=== PATIENT | female | born 1945 ===

== ENCOUNTER 2020-07-30 06:03 | Outpatient (REF) | payer SELFPAY ==
[2020-07-30 06:51] LABS: Hematocrit 40.5 % (37-47); Hemoglobin 13.1 g/dl (12.0-16.0); Mean Corpuscular HGB Conc 32.3 g/dl (31.0-35.0); Mean Corpuscular Hemoglobin 30.2 pg (27.0-33.0); Mean Corpuscular Volume 93.3 fL (80-98); Mean Platelet Volume 12.2 fL (9.4-12.3); Platelet Count 139 X10*3/uL (160-400); Red Blood Count 4.34 X10*6/uL (4.20-5.50); Red Cell Distribution Width 13.9 % (11.0-16.0); White Blood Count 6.2 X10*3/uL (4.8-10.8)
[2020-07-30 06:53] LABS: Partial Thromboplastin Time 33.4 SEC (24.1-38.0)
[2020-07-30 06:54] LABS: Alanine Aminotransferase 38 U/L (0-31); Albumin Level 3.6 g/dL (3.5-5.0); Alkaline Phosphatase 75 U/L (39-117); Anion Gap 12 (12-20); Aspartate Amino Transferase 28 U/L (5-31); Bilirubin Total 0.5 mg/dL (0.0-1.0); Blood Urea Nitrogen 18 mg/dL (9-16); Calcium 9.8 mg/dL (8.4-10.2); Carbon Dioxide 32 mmol/L (22-29); Chloride 100 mmol/L (96-108); Estimated Glomerular Filt Rate > 60; Glucose Random 104 mg/dL (60-115); Potassium 3.9 mmol/L (3.3-5.1); Sodium 140 mmol/L (135-145); Total Protein 5.7 g/dL (6.5-8.0)
== END 2020-07-30 06:04 | disposition home or self-care (01) ==
LOC: HO.MMNH1L 06:03
PROVIDERS: Visit Provider Family Medicine
DX: E03.9 Hypothyroidism, unspecified (principal); E78.5 Hyperlipidemia, unspecified
CPT/HCPCS: 36415; 80053; 85027; 85730

== ENCOUNTER 2020-08-04 00:24 | Outpatient (REF) | payer SELFPAY ==
[2020-08-04 08:10] LABS: Hemoglobin 13.1 g/dl (12.0-16.0); Mean Corpuscular HGB Conc 32.8 g/dl (31.0-35.0); Mean Corpuscular Hemoglobin 30.7 pg (27.0-33.0); Mean Corpuscular Volume 93.7 fL (80-98); Platelet Count 125 X10*3/uL (160-400); Red Blood Count 4.27 X10*6/uL (4.20-5.50); Red Cell Distribution Width 14.1 % (11.0-16.0); White Blood Count 5.5 X10*3/uL (4.8-10.8)
[2020-08-04 08:30] LABS: Anion Gap 12 (12-20); Blood Urea Nitrogen 18 mg/dL (9-16); Calcium 9.3 mg/dL (8.4-10.2); Carbon Dioxide 32 mmol/L (22-29); Chloride 100 mmol/L (96-108); Estimated Glomerular Filt Rate > 60; Glucose Random 95 mg/dL (60-115); Potassium 3.8 mmol/L (3.3-5.1); Sodium 140 mmol/L (135-145)
== END 2020-08-04 00:25 | disposition home or self-care (01) ==
LOC: HO.MMNH1L 00:24
PROVIDERS: Visit Provider Family Medicine
DX: E03.9 Hypothyroidism, unspecified (principal); E78.5 Hyperlipidemia, unspecified
CPT/HCPCS: 36415; 80048; 85027

== ENCOUNTER 2020-08-11 01:02 | Outpatient (REF) | payer MEDICARE, SELFPAY | END 2020-08-11 01:03 | disposition home or self-care (01) | LOC: HO.MMNH1L 01:02 | PROVIDERS: Visit Provider Family Medicine | DX: Z13.89 Encounter for screening for other disorder (principal) ==